=== PATIENT | male | born 1990 | race Two or more races ===

== ENCOUNTER 2018-01-17 23:11 | Emergency (ER) | payer SELFPAY, OTHER ==
[2018-01-18] MEDS: CYCLOBENZAPRINE 10 MG TAB PO (02:51)
[2018-01-18] MEDS: KETOROLAC 60 MG INJ IM ×2 (02:52→03:00)
[2018-01-18] MEDS: HYDROCODONE/APAP (5/325) TAB PO (02:52)
== END 2018-01-18 03:02 | disposition home or self-care (01) ==
LOC: FTE 23:11
DX: S39.012A Strain of muscle, fascia and tendon of lower back, initial encounter (principal); S00.83XA Contusion of other part of head, initial encounter; S16.1XXA Strain of muscle, fascia and tendon at neck level, initial encounter; V89.2XXA Person injured in unspecified motor-vehicle accident, traffic, initial encounter
CPT/HCPCS: 96372; 99284-25